=== PATIENT | male | born 1980 | race Caucasian/White ===

== ENCOUNTER 2024-03-11 10:44 | Emergency (ER) | payer BC ==
[2024-03-11 11:08] VITALS: PULSE 92; RESP 16; TEMP 97.3; O2SAT 98
--- NOTE | 2024-03-11 11:53 | ERPHSYRPT ---
- History of Present Illness Time Seen by Provider: 03/11/24 11:40 Source: patient Exam Limitations: no limitations Patient Subjective Stated Complaint: rash and fever Triage Nursing Assessment: patient states that he has a rash to the inner right thigh. it's quite large takes up most of the inner thigh. it's not raised. it's red and warm. hx of skin cancer (melanoma) removed 15 years ago. in that area with all the lymph nodes removed from inner right groin. he states he always has swelling because of that however it is more swollen than normal. he mowed the other day but doesn't think the rash and mowing exposure are related. also reports not taking any of his home medications for the past few days due to not feeling well Physician History: 43yo m pmhx melanoma w/ removal of lymph nodes in groin presents for fever, body aches, rash on right thigh x 4d. Pt reports that he has had sinus congestion w/ intermittent fevers at home, tmax 102F. Pt reports fevers have responded to antipyretics. Pt states his right thigh has been persistently swollen since he started having the fevers, states this is not abnormal for him since the lymph node removal, but he has developed a red irritating rash on the inner thigh that has been worsening over the past 2d. Pt denies any cp, soa, n/v/abdominal pain. Timing/Duration: day(s), intermittent Fever Severity: moderate Fever Therapy LABORATORY AIDE: Ibuprofen, Acetaminophen Associated Symptoms: muscle aches, No chest pain, No cough, No headache, No nausea/vomiting, No stiff neck Allergies/Adverse Reactions: Latex, Natural Rubber Allergy (Verified 03/11/24 11:08) morphine Adverse Reaction (Intermediate, Verified 03/11/24 11:08) Vomiting Home Medications: Enalapril/Hydrochlorothiazide [Enalapril-Hctz 10-25 mg Tablet] 20 mg PO DAILY 03/11/24 [History] Hydrochlorothiazide 25 mg [hydroDIURIL 25 MG] 25 mg PO DAILY 03/11/24 [History] Levothyroxine Sodium 150 Mcg [Synthroid 150 Mcg] 75 mcg PO DAILY 03/11/24 [History] Metformin HCl 500 mg [Glucophage 500 MG] 1,000 mg PO DAILY 03/11/24 [History] Simvastatin 20Mg [Zocor 20Mg] 20 mg PO HS 03/11/24 [History] Hx Influenza Vaccination/Date Given: No Hx Pneumococcal Vaccination/Date Given: No Travel Risk - International Travel Have you traveled outside of the country in past 3 weeks: No - Review of Systems Ears, Nose, & Throat: Nose Congestion, Sinus Drainage, No Throat Swelling, No Hoarse, No Stridor Respiratory: No Cough, No Dyspnea, No Stridor, No Wheezing Abdominal/Gastrointestinal: No Symptoms Genitourinary Symptoms: No Symptoms Skin: Rash (right thigh) Neurological: No Symptoms - Past Medical History Cardiac History: High Cholesterol, Hypertension Endocrine Medical History: Diabetes Type II, Hypothyroidism Other Medical History: melanoma - Past Surgical History Male Surgical History: Vasectomy Other Surgical History: melanoma removal from right knee area - Social History Smoking Status: Former smoker Drug Use: none - Nursing Vital Signs Nursing Vital Signs: Initial Vital Signs Temperature 97.3 F 03/11/24 10:48 Pulse Rate 92 H 03/11/24 10:48 Respiratory Rate 16 03/11/24 10:48 Blood Pressure 154/96 03/11/24 10:48 O2 Sat by Pulse Oximetry 97 03/11/24 10:48 Pain Scale Pain Intensity 0 - Physical Exam General Appearance: no apparent distress, alert ENT Exam: normal ENT inspection, TMs normal, pharynx normal, nasal congestion Respiratory Exam: normal breath sounds, chest non-tender, lungs clear, no re spiratory distress, No rhonchi, No stridor, No wheezing Cardiovascular/Chest Exam: normal heart sounds, regular rate/rhythm, normal peripheral pulses, edema (moderate non-pitting edema of right thigh, does not involve or go beyond knee) Gastrointestinal/Abdominal Exam: soft, non tender, no distention Skin Exam: rash (right inner thigh - erythematous, warm, venous stasus present, mild TTP, non-raised, non-bulous) SpO2: 98 Ordered Tests: Active Orders 24 hr Category Date Time Status BLOOD CULTURE Stat Lab 03/11/24 12:03 Received CBC W DIFF Stat Lab 03/11/24 11:50 Completed CMP Stat Lab 03/11/24 11:50 Completed Lactic Acid Stat Lab 03/11/24 12:05 Completed Medication Summary Generic Name Dose Route Start Last Admin Trade Name Freq PRN Reason Stop Dose Admin Furosemide 20 mg 03/12/24 11:45 03/11/24 12:00 Furosemide 20 Mg Tablet PO 03/12/24 11:46 20 mg STAT ONE Administration Discontinued Medications Generic Name Dose Route Start Last Admin Trade Name Pio PRN Reason Stop Dose Admin Doxycycline Hyclate 100 mg 03/11/24 13:00 Doxycycline Hyclate 100 Mg Tablet PO 03/11/24 13:01 STAT ONE Lab/Rad Data: Laboratory Result Diagrams 03/11/24 11:50 03/11/24 11:50 Laboratory Results 03/11/24 03/11/24 03/11/24 Range/Units 12:05 11:50 11:50 WBC (4.23-9.07) x10^3/uL RBC (4.63-6.08) x10^6/uL Hgb (13.7-17.5) g/dL Hct (40.1-51.0) % MCV (79.0-92.2) fL MCH (25.7-32.2) pg MCHC (32.3-36.5) g/dL RDW (11.6-14.4) % Plt Count (163-337) x10^3/uL MPV (9.4-12.4) fL Gran % (34.0-67.9) % Immature Gran % (Auto) (0.001-0.429) % Nucleat RBC Rel Count (0.00-0.2) % Eos # (Auto) (0.04-0.54) x10^3/uL Immature Gran # (Auto) (0.001-0.031) x10^3u/L Absolute Lymphs (auto) (1.32-3.57) x10^3/uL Absolute Monos (auto) (0.30-0.82) x10^3/uL Absolute Nucleated RBC (0.00-0.012) x10^3u/L Lymphocytes % (21.8-53.1) % Monocytes % (5.3-12.2) % Eosinophils % (0.8-7.0) % Basophils % (0.2-1.2) % Absolute Granulocytes (1.78-5.38) x10^3/uL Basophils # (0.01-0.08) x10^3/uL Sodium 131 L (135-145) mmol/L Potassium 3.6 (3.5-5.1) mmol/L Chloride 96 L (98-107) mmol/L Carbon Dioxide 24 (22-30) mmol/L Anion Gap 15.1 H (5-15) MEQ/L BUN 12 (9-20) mg/dL Creatinine 0.85 (0.66-1.25) mg/dL Estimated GFR 109.2 ML/MIN Glucose 389 H (74-106) mg/dL Lactic Acid 2.6 H (0.4-2.0) Calcium 9.4 (8.4-10.2) mg/dL Total Bilirubin 1.10 (0.2-1.3) mg/dL AST 38 (17-59) U/L ALT 37 (0-50) U/L Alkaline Phosphatase 122 (38-126) U/L Serum Total Protein 7.7 (6.3-8.2) g/dL Albumin 4.3 (3.5-5.0) g/dL Influenza Type A Ag NEGATIVE (NEGATIVE) Influenza Type B Ag NEGATIVE (NEGATIVE) RSV (PCR) NEGATIVE (NEGATIVE) SARS-CoV-2 (PCR) NEGATIVE (NEGATIVE) 03/11/24 Range/Units 11:50 WBC 7.7 (4.23-9.07) x10^3/uL RBC 5.02 (4.63-6.08) x10^6/uL Hgb 14.6 (13.7-17.5) g/dL Hct 42.5 (40.1-51.0) % MCV 84.7 (79.0-92.2) fL MCH 29.1 (25.7-32.2) pg MCHC 34.4 (32.3-36.5) g/dL RDW 12.3 (11.6-14.4) % Plt Count 250 (163-337) x10^3/uL MPV 9.4 (9.4-12.4) fL Gran % 77.2 H (34.0-67.9) % Immature Gran % (Auto) 0.4 (0.001-0.429) % Nucleat RBC Rel Count 0.0 (0.00-0.2) % Eos # (Auto) 0.07 (0.04-0.54) x10^3/uL Immature Gran # (Auto) 0.03 (0.001-0.031) x10^3u/L Absolute Lymphs (auto) 1.14 L (1.32-3.57) x10^3/uL Absolute Monos (auto) 0.47 (0.30-0.82) x10^3/uL Absolute Nucleated RBC 0.00 (0.00-0.012) x10^3u/L Lymphocytes % 14.9 L (21.8-53.1) % Monocytes % 6.1 (5.3-12.2) % Eosinophils % 0.9 (0.8-7.0) % Basophils % 0.5 (0.2-1.2) % Absolute Granulocytes 5.92 H (1.78-5.38) x10^3/uL Basophils # 0.04 (0.01-0.08) x10^3/uL Sodium (135-145) mmol/L Potassium (3.5-5.1) mmol/L Chloride (98-107) mmol/L Carbon Dioxide (22-30) mmol/L Anion Gap (5-15) MEQ/L BUN (9-20) mg/dL Creatinine (0.66-1.25) mg/dL Estimated GFR ML/MIN Glucose (74-106) mg/dL Lactic Acid (0.4-2.0) Calcium (8.4-10.2) mg/dL Total Bilirubin (0.2-1.3) mg/dL AST (17-59) U/L ALT (0-50) U/L Alkaline Phosphatase (38-126) U/L Serum Total Protein (6.3-8.2) g/dL Albumin (3.5-5.0) g/dL Influenza Type A Ag (NEGATIVE) Influenza Type B Ag (NEGATIVE) RSV (PCR) (NEGATIVE) SARS-CoV-2 (PCR) (NEGATIVE) - Progress Progress: re-examined Progress Note: 03/11/24 13:02 BG elevated 389 lactic acid 2.6 fluids deferred in setting of right leg swelling likely cellulitis along w/ viral URI plan for dc home w/ course of doxycycline, close PCP f/u for monitor of blood glucose instructed to take metformin daily, watch diet and limit carb intake elevate right lower extremity to promote lymphatic drainage return to ED if: develop fevers that don't resolve w/ tylenol/ibuprofen, swelling in leg progresses, leg becomes very painful, have difficulties moving the leg, develop shortness of breath or chest pain - Departure Departure Disposition: Home Clinical Impression: Cellulitis of right leg, Hyperglycemia Condition: Stable Critical Care Time: No Additional Instructions: likely cellulitis along w/ viral URI plan for dc home w/ course of doxycycline, close PCP f/u for monitor of blood glucose instructed to take metformin daily, watch diet and limit carb intake elevate right lower extremity to promote lymphatic drainage return to ED if: develop fevers that don't resolve w/ tylenol/ibuprofen, swelling in leg progresses, leg becomes very painful, have difficulties moving the leg, develop shortness of breath or chest pain Prescriptions: Doxycycline Hyclate 100 mg [Vibramycin 100 MG] 100 mg PO BID 7 Days #14 tab
[2024-03-11] MEDS: LASIX 20 MG PO ONE (12:00)
[2024-03-11 12:12] LABS: Absolute Neutrophil Ct (ANC) 5.92 x10^3/uL (1.78-5.38); BASOPHIL % 0.5 % (0.2-1.2); Basophil (Absolute #) 0.04 x10^3/uL (0.01-0.08); Eosinophil % 0.9 % (0.8-7.0); Eosinophil (Absolute #) 0.07 x10^3/uL (0.04-0.54); Hematocrit 42.5 % (40.1-51.0); Hemoglobin 14.6 g/dL (13.7-17.5); IMMATURE GRAN # 0.03 x10^3u/L (0.001-0.031); IMMATURE GRAN % 0.4 % (0.001-0.429); Lymphocyte (Absolute #) 1.14 x10^3/uL (1.32-3.57); Lymphocytes % 14.9 % (21.8-53.1); Mean Cell Volume 84.7 fL (79.0-92.2); Mean Corpuscular Hemoglobin 29.1 pg (25.7-32.2); Mean Corpuscular Hgb Concent. 34.4 g/dL (32.3-36.5); Mean Platelet Volume 9.4 fL (9.4-12.4); Monocyte (Absolute #) 0.47 x10^3/uL (0.30-0.82); Monocytes % 6.1 % (5.3-12.2); Neutrophil % 77.2 % (34.0-67.9); Platelet Count 250 x10^3/uL (163-337); Red Blood Count 5.02 x10^6/uL (4.63-6.08); Red Cell Distribution Width 12.3 % (11.6-14.4); White Blood Count 7.7 x10^3/uL (4.23-9.07)
[2024-03-11 12:25] LABS: ALBUMIN 4.3 g/dL (3.5-5.0); ANION GAP 15.1 MEQ/L (5-15); BILIRUBIN,TOTAL 1.1 mg/dL (0.2-1.3); Calcium 9.4 mg/dL (8.4-10.2); Creatinine 1 0.85 mg/dL (0.66-1.25); EST GLOMERULAR FILTRATION RATE 109.2 ML/MIN; Potassium 3.6 mmol/L (3.5-5.1); Total Protein 7.7 g/dL (6.3-8.2)
[2024-03-11 12:52] LABS: INFLUENZA A NEGATIVE (NEGATIVE); INFLUENZA B NEGATIVE (NEGATIVE); RESPIRATORY SYNCTIAL VIRUS NEGATIVE (NEGATIVE); SARS-CoV-2 Xpert Express NEGATIVE (NEGATIVE)
[2024-03-11] MEDS: Vibramycin 100 MG PO ONE (13:02)
[2024-03-11] MEDS ORDERED: Vibramycin 100 MG ONE (13:02)
[2024-03-11 13:05] VITALS: BP 136/96
== END 2024-03-11 13:17 | disposition home or self-care (01) ==
LOC: ED 10:44
DX: L03.115 Cellulitis of right lower limb (principal); E11.65 Type 2 diabetes mellitus with hyperglycemia; R50.9 Fever, unspecified; M79.10 Myalgia, unspecified site; E78.5 Hyperlipidemia, unspecified; I10 Essential (primary) hypertension; Z79.84 Long term (current) use of oral hypoglycemic drugs; Z79.899 Other long term (current) drug therapy
CPT/HCPCS: 0241U; 36415; 80053; 83605; 85025; 87040; 99283; A9270-GY